=== PATIENT | female | born 1960 | race Caucasian/White ===

== ENCOUNTER 2017-12-15 17:17 | Emergency (ER) | payer BC, OTHER ==
[~2017-12-15] VITALS: Ht 170.2 cm; Wt 108.9 kg
[~2017-12-15 17:17] MED LIST: ATOR10 PO; LORTA5 PO; PAXI30TA7 PO; WALKER STANDARD
[2017-12-15 17:24] VITALS: BP 150/97; PULSE 68; RESP 16; TEMP 97.9; O2SAT 96
[2017-12-15] MEDS ORDERED: ATOR10TA15 PO (17:34)
[2017-12-15] MEDS ORDERED: PAXI30TA7 PO (17:34)
--- NOTE | 2017-12-15 18:18 | RADRPT ---
EXAM DATE/TIME: 12/15/2017 17:49 [place] COMPARISON: No previous studies available for comparison. INDICATIONS : Pain due to fall. MEDICAL HISTORY : None. SURGICAL HISTORY : None. ENCOUNTER: Initial ACUITY: 1 day PAIN SCORE: 7/10 LOCATION: Left upper extremity wrist, posterior lateral. FINDINGS: Three view examination of the left wrist demonstrates no soft tissue swelling, dislocation, or fractu re. The carpal bones are in normal alignment. The joint spaces are maintained. Bony mineralization is normal. CONCLUSION: No acute fracture or joint dislocation. Talon Cassidy MD on December 15, 2017 at 18:16 Board Certified Radiologist. This report was verified electronically.
--- NOTE | 2017-12-15 18:29 | PD ---
HPI Chief Complaint: Injury Time Seen by Provider: 17:42 Travel History International Travel<30 days: Yes Contact w/Intl Traveler<30days: Yes Name of Country Traveled to: [facility] Traveled to known affect area: No History of Present Illness HPI This is a 57-year-old female here with left wrist pain after she fell from a standing position after tripping and falling onto an outstretched hand. She denies head injury loss of consciousness. Patient is not anticoagulated. She has pain localized to the wrist. She has normal range of motion of the fingers. Symptom severity is moderate. Aggravated by movement and relieved with rest. 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 IVY) Gynecologic Surgery: Yes (HYSTERECTOMY) Hysterectomy: Yes (OCTOBER 2013) Social History Alcohol Use: Yes (S) Tobacco Use: No Substance Use: No Allergies-Medications (Allergen,Severity, Reaction): Coded Allergies: codeine (Unverified Allergy, Severe, Tachycardia, 12/15/17) Reported Meds & Prescriptions Reported Meds & Active Scripts Active Reported Paxil (Paroxetine HCl) 30 Mg Tab 30 Mg PO DAILY Atorvastatin (Atorvastatin Calcium) 10 Mg Tab 10 Mg PO HS Review of Systems Except as stated in HPI: all other systems reviewed are Neg General / Constitutional: No: Fever Eyes: No: Visual changes HENT: No: Headaches Cardiovascular: No: Chest Pain or Discomfort Respiratory: No: Shortness of Breath Gastrointestinal: No: Abdominal Pain Genitourinary: No: Dysuria Physical Exam Narrative GENERAL: Alert and well-appearing 49-year-old female SKIN: Warm and dry. HEAD: Normocephalic. Atraumatic EYES: No injection or drainage. NECK: Supple, trachea midline. No cervical midline tenderness. CARDIOVASCULAR: Regular rate and rhythm without murmurs, gallops, or rubs. No chest wall tenderness. RESPIRATORY: Breath sounds equal bilaterally. No accessory muscle use. GASTROINTESTINAL: Abdomen soft, non-tender, nondistended. MUSCULOSKELETAL: No cyanosis. LUE: + Tenderness and swelling at the location of the distal radius dorsal aspect of the wrist. No obvious deformity. Palpable radial pulse. Normal sensation with 2 point discrimination in the fingers. Brisk cap refill. BACK: Nontender without obvious deformity. No CVA tenderness. Data Data Last Documented VS Vital Signs Date Time Temp Pulse Resp B/P (MAP) Pulse Ox O2 Delivery O2 Flow Rate FiO2 12/15/17 17:24 97.9 68 16 150/97 (114) 96 Orders Orders Wrist, Complete ([id number]) (12/15/17 ) Acetamin-Hydrocod 325-5 Mg ([place] 5-325 (12/15/17 18:30) Ibuprofen (Motrin) (12/15/17 18:45) Splint Or Brace Apply/Monitor (12/15/17 18:33) MDM Medical Decision Making Medical Screen Exam Complete: Yes Emergency Medical Condition: Yes Differential Diagnosis Wrist fracture, contusion, sprain Narrative Course This is a 49-year-old female with left wrist pain after fall from a standing position today. The extremity is neurovascularly intact. Patient has tenderness over the distal radius and scaphoid region. X-ray is negative for fracture. I have concern there is possible occult fracture therefore patient is placed in a splint and instructed to follow-up with her primary doctor for repeat x-ray in 1 week. Diagnosis Primary Impression: Wrist pain Qualified Codes: M25.532 - Pain in left wrist Referrals: Orthopedist Primary Care Physician Additional Instructions: As we discussed he may need a repeat x-ray this week. Ice and elevate the extremity. Wear the splint until follow-up with your doctor. Ibuprofen as needed for pain. Follow up with her primary doctor for reexamination and possible re-x-ray this week. Scripts Ibuprofen (Ibuprofen) 800 Mg Tab 800 MG PO Q6HR Y for PAIN, #40 TAB 0 Refills Prov: Doris Hathaway 12/15/17 Disposition: 01 DISCHARGE HOME Condition: Stable Doris Hathaway December 15, 2017 18:29
[2017-12-15] MEDS ORDERED: ACETAMINOPHEN/HYDROcodone 325 MG/5 MG TAB PO ONE (18:30)
[2017-12-15] MEDS ORDERED: IBUP1TAB7 PO (18:41)
[2017-12-15] MEDS ORDERED: IBUPROFEN 800 MG TAB PO ONE (18:45)
== END 2017-12-15 19:06 | disposition home or self-care (01) ==
LOC: PHEFT 17:17
DX: M25.532 Pain in left wrist (principal); W01.0XXA Fall on same level from slipping, tripping and stumbling without subsequent striking against object, initial encounter; F41.9 Anxiety disorder, unspecified; E78.00 Pure hypercholesterolemia, unspecified; Z85.42 Personal history of malignant neoplasm of other parts of uterus
CPT/HCPCS: 73110; 99283; L3808